=== PATIENT | male | born 1990 ===

== ENCOUNTER 2017-09-06 13:57 | Emergency (ER) | payer OTHER ==
[2017-09-06 14:02] VITALS: BP 129/87; PULSE 70; RESP 18; TEMP 98; O2SAT 100
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
[2017-09-06] MEDS ORDERED: Amoxicillin-Clav 875-125 mg Tab PO STA (15:51)
[2017-09-06] MEDS ORDERED: Amoxicillin-Clav 875-125 mg Tab PO ONE (16:00)
== END 2017-09-06 16:15 | disposition home or self-care (01) ==
LOC: C.ER 13:57
DX: S02.40EA Zygomatic fracture, right side, initial encounter for closed fracture (principal); W50.0XXA Accidental hit or strike by another person, initial encounter; Y93.66 Activity, soccer; Y92.89 Other specified places as the place of occurrence of the external cause

== ENCOUNTER 2018-06-22 11:41 | Emergency (ER) | payer BC, OTHER ==
[2018-06-22 12:04] VITALS: BP 142/72; PULSE 64; RESP 18; TEMP 98.5; O2SAT 100
--- NOTE | 2018-06-22 12:27 | C.PDOC ---
History Of Present Illness 27 yo male come in for evaluation of left knee pain developed since last night after sustained twisting injury while playing soccer. Pt reports, pain is localized over medial aspect left knee, worse with knee bend. Otherwise, pt denies deformity, skin changes, weakness, sensory or vascular deficits to Left knee/leg. Ambulate to Ed for evaluation, not in any apparent distress. Time Seen by Provider: 06/22/18 11:43 Chief Complaint (Nursing): Lower Extremity Problem/Injury History Per: Patient Onset/Duration Of Symptoms: Gradual Past Medical History Reviewed: Historical Data, Nursing Documentation, Vital Signs Vital Signs: Last Vital Signs Temp 98.5 F 06/22/18 11:58 Pulse 64 06/22/18 11:58 Resp 18 06/22/18 11:58 BP 142/72 06/22/18 11:58 Pulse Ox 100 06/22/18 12:31 - Medical History PMH: No Chronic Diseases Surgical History: No Surg Hx Family History: States: No Known Family Hx - Social History Hx Alcohol Use: Yes Hx Substance Use: No - Immunization History Hx Tetanus Toxoid Vaccination: No Hx Influenza Vaccination: No Hx Pneumococcal Vaccination: No Review Of Systems Except As Marked, All Systems Reviewed And Found Negative. Constitutional: Negative for: Fever, Chills Eyes: Negative for: Vision Change Musculoskeletal: Positive for: Other (Left knee pain). Negative for: Neck Pain , Back Pain Skin: Negative for: Bruising Neurological: Negative for: Weakness, Numbness Physical Exam - Physical Exam Appears: Well, Non-toxic, No Acute Distress Skin: Normal Color, Warm, No Ecchymosis Head: Atraumatic, Normacephalic Eye(s): bilateral: PERRL Extremity: Normal ROM (mild discomfort to Left knee flexion due to pain. FAROM, no neurovascular deficits distally to injury.), Tenderness (mild over medial aspect left knee. Mild edema noted. No palpable deformity, no skin changes.), No Calf Tenderness, No Deformity, No Swelling Neurological/Psych: Oriented x3, Normal Speech, Normal Motor, Normal Sensation, Normal Reflexes ED Course And Treatment O2 Sat by Pulse Oximetry: 100 Pulse Ox Interpretation: Normal - Other Rad Left knee X-Ray: Interpreted by Me, Viewed By Me Interpretation: On re-eval, pt is afebrile, hemodynamicaly stable. Non-toxic. Ambulatory in ED with stable gait. Left knee: mild tendernes sover medial aspect with scant edema. No palpable deformity. FAROM, no neurovascular deficits. Imaging review (-) acute fx or dislocation. Alcides wrap applied to Left knee. Pt advised RICE. Ref. to f/u with Ortho in 2 -3 days for re-eavl. return if any new changes. Disposition Counseled Patient/Family Regarding: Studies Performed, Diagnosis, Need For Followup, Rx Given - Disposition Referrals: Sudeep Huynh III, MD [Staff Provider] - Disposition: HOME/ ROUTINE Disposition Time: 12:24 Condition: STABLE Additional Instructions: RICE-rest,ice,compression,elevation Ibuprofen as prescribed Follow up with Orthopedist in 2-3 days for re-evaluation. return to ED if any worsening or new changes. Prescriptions: Ibuprofen [Motrin Tab] 600 mg PO BID #20 tab Instructions: Knee Sprain (DC) Forms: [employer] (Portuguese), Work Excuse - Clinical Impression Clinical Impression: Knee sprain
--- NOTE | 2018-06-22 12:28 | RAD ---
Date of service: 06/22/2018 PROCEDURE: Left Knee Radiographs. HISTORY: Pain. COMPARISON: None. FINDINGS: BONES: No fracture identified. JOINTS: No dislocation seen. Bony articulations appear maintained. JOINT EFFUSION: There is a joint effusion OTHER FINDINGS: None. IMPRESSION: No fracture or dislocation identified. There is a joint effusion.
== END 2018-06-22 12:45 | disposition home or self-care (01) ==
LOC: C.ER 11:41
DX: S83.92XA Sprain of unspecified site of left knee, initial encounter (principal); X50.9XXA Other and unspecified overexertion or strenuous movements or postures, initial encounter; Y93.66 Activity, soccer

== ENCOUNTER 2018-08-10 12:15 | Emergency (ER) | payer BC ==
[2018-08-10 12:37] VITALS: BP 137/88; PULSE 70; RESP 17; TEMP 98.1; O2SAT 100
--- NOTE | 2018-08-10 13:16 | C.PDOC ---
History Of Present Illness 27yo male, comes to ER reporting left knee pain (possible recurrent left kneecap dislocation) since last night. PAtient states he was playing soccer and twisted his knee and felt "something come out." He self reduced on site and now is complaining of pain and swelling to the area. He denies any direct trauma to the knee. Patient states he has been previously diagnosed with a kneecap dislocation. No weakness or numbness of left leg. No other complaints. Time Seen by Provider: 08/10/18 13:03 Chief Complaint (Nursing): Lower Extremity Problem/Injury History Per: Patient History/Exam Limitations: no limitations Onset/Duration Of Symptoms: Days (1) Current Symptoms Are (Timing): Still Present Additional History Per: Patient - Knee Description Of Injury: Twisted Past Medical History Reviewed: Historical Data, Nursing Documentation, Vital Signs Vital Signs: Last Vital Signs Temp 98.1 F 08/10/18 12:33 Pulse 70 08/10/18 12:33 Resp 17 08/10/18 12:33 BP 137/88 08/10/18 12:33 Pulse Ox 100 08/10/18 13:34 - Medical History PMH: No Chronic Diseases Denies: Chronic Kidney Disease Surgical History: No Surg Hx Family History: States: No Known Family Hx - Social History Hx Alcohol Use: Yes Hx Substance Use: No - Immunization History Hx Tetanus Toxoid Vaccination: No Hx Influenza Vaccination: No Hx Pneumococcal Vaccination: No Review Of Systems Musculoskeletal: Positive for: Leg Pain (left knee pain and swelling) Neurological: Negative for: Weakness, Numbness Physical Exam - Physical Exam Appears: Non-toxic Skin: Normal Color Head: Normacephalic Eye(s): bilateral: Normal Inspection Extremity: No Normal ROM (+ limited full flexion due to swelling), Tenderness ( generalized tenderness to left anterior knee; patella in place), No Calf Tenderness, No Deformity, Swelling (left anterior knee swelling), Other (no joint effusion noted) Neurological/Psych: Oriented x3, Normal Motor, Normal Sensation ED Course And Treatment O2 Sat by Pulse Oximetry: 100 (RA) Pulse Ox Interpretation: Normal - Other Rad L KNEE X-Ray: Interpreted by Me (neg) Progress Note: Patient given Naproxen. XR Left knee ordered. Disposition Counseled Patient/Family Regarding: Studies Performed, Diagnosis, Need For Followup, Rx Given - Disposition Referrals: [facility] [Outside] [facility] [Outside] Disposition: HOME/ ROUTINE Disposition Time: 13:33 Condition: IMPROVED Prescriptions: Naproxen 500 mg PO BID #30 tab Instructions: Knee Sprain (DC) Forms: [employer] (Gabonese) - Clinical Impression Clinical Impression: Knee sprain - Scribe Statement The provider has reviewed the documentation as recorded by the Bunny Navarro Provider Attestation: All medical record entries made by the Bunny were at my direction and personally dictated by me. I have reviewed the chart and agree that the record accurately reflects my personal performance of the history, physical exam, medical decision making, and the department course for this patient. I have also personally directed, reviewed, and agree with the discharge instructions and disposition.
[2018-08-10] MEDS ORDERED: Naproxen 550 mg Tab PO STA (13:17)
--- NOTE | 2018-08-10 14:21 | RAD ---
Date of service: 08/10/2018 PROCEDURE: Left Knee Radiographs. HISTORY: Pain. COMPARISON: None. FINDINGS: BONES: Normal. No fracture. JOINTS: Normal. No osteoarthritis. JOINT EFFUSION: None. OTHER FINDINGS: None. IMPRESSION: Normal radiographs of the left knee. Concordant results with the preliminary interpretation rendered by the emergency department physician procedure.
== END 2018-08-10 13:45 | disposition home or self-care (01) ==
LOC: C.ER 12:15
DX: S83.92XA Sprain of unspecified site of left knee, initial encounter (principal); X50.1XXA Overexertion from prolonged static or awkward postures, initial encounter; Y93.66 Activity, soccer

== ENCOUNTER 2019-01-16 04:22 | Emergency (ER) | payer OTHER, BC ==
[2019-01-16 04:38] VITALS: RESP 16
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
[2019-01-16 07:06] VITALS: BP 133/73; PULSE 68; TEMP 98.3
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
[2019-01-16 21:49] VITALS: O2SAT 98
== END 2019-01-16 07:07 | disposition home or self-care (01) ==
LOC: C.ER 04:22
DX: S02.2XXA Fracture of nasal bones, initial encounter for closed fracture (principal); V89.2XXA Person injured in unspecified motor-vehicle accident, traffic, initial encounter